=== PATIENT | female | born 2000 | race Hispanic/Latino ===

== ENCOUNTER 2024-01-24 23:00 | Emergency (ER) | payer SELFPAY ==
[2024-01-24 23:09] VITALS: BP 101/54; PULSE 64; RESP 14; TEMP 36.3; O2SAT 100
[2024-01-24 23:31] LABS: BEDSIDEPREGUCG Negative (Negative)
[2024-01-24 23:35] LABS: Add Urine Microscopic? YES; Appearance Urine Clear (Clear); Bacteria Urine None Seen /hpf; Bilirubin Urine Negative (Negative); Blood Urine 2+ (Negative); Color Urine Yellow (Yellow); Glucose Urine UA Negative (Negative); Ketones Urine Negative (Negative); Leukocyte Esterase Ur Negative LEU/UL (Negative); Nitrate Urine Negative (Negative); Non Pathogenic Casts 0-2; Protein Urine Negative (Negative); RBC Urine 0-2 /hpf (0-2); Specific Grav Ur 1.017 (1.001-1.035); Squamous Epithelial Cell Urine Occasional /hpf (Few); Urobilinogen Urine 0.2 mg/dL (<2.0); WBC Urine 0-5 /hpf (0-3)
[2024-01-25 02:34] LABS: Basophils Percent Auto 0.3 % (0.2-1.2); Eosinophils Absolute Auto 0.1 K/mm3 (0-0.3); Eosinophils Percent Auto 1.7 % (0-4.4); Immature Granulocyte Absolute 0.01 K/mm3 (0.00-0.031); Immature Granulocyte Percent A 0.2 % (0-0.5); Lymphocytes Percent Auto 44.4 % (18.3-44.2); Mean Corpuscular HGB Conc 34.4 g/dl (32-36); Mean Corpuscular Hemoglobin 30.7 pg (26-34); Mean Corpuscular Volume 89.4 fl (80-100); Mean Platelet Volume 9.4 fl (7.4-10.4); Monocytes Absolute Auto 0.4 K/mm3 (0.1-0.6); Neutrophils Absolute Auto 2.8 K/mm3 (1.3-6.7); Neutrophils Percent Auto 47.4 % (45.5-73.1); Platelet Count Result 261 k/mm3 (150-375); Red Blood Count 3.58 M/mm3 (4.2-5.4); Red Cell Distribution Width 12.3 % (11.5-14.5); White Blood Count 5.9 K/mm3 (4.5-10.0)
--- NOTE | 2024-01-25 02:36 | ED_ITS ---
HPI - Abdominal Pain General Chief Complaint: Abdominal Pain Stated Complaint: Stomach pain Time Seen by Provider: 01/25/24 02:35 Source: patient Mode of arrival: ambulatory Limitations: language barrier (Guilherme #[id number]) History of Present Illness HPI narrative: 23 year old female Patient presents with complaint epigastric pain occurring intermittently for the past 1 month. She describes it as her pressure that radiates to her left upper quadrant. It is worse with eating food and in particular spicy foods. She denies any use of NSAIDs. She does not drink alcohol and is not on steroids. She states it causes discomfort in her esophagus. 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 She felt nauseated but no vomiting recently though did few months ago. Patient notes that occasionally she is constipated for 3 or 4 days and then this alternates with diarrhea for a few days and back to constipation. No bloody stools. No fevers or chills. Her last bowel movement wastoday; last oral intake 5pm.. She does not have an appetite. LMP 12/20. Related Data Allergies Allergy/AdvReac Type Severity Reaction Status Date / Time No Known Allergies Allergy Verified 01/24/24 23:30 Exam Narrative: GENERAL: Well-appearing, well-nourished, and in no acute distress. HEAD: Normocephalic, atraumatic. EYES: Non injected, non icteric ENT: Nares clear, no rhinorrhea or epistaxis. NECK: Supple. CHEST: Speaking in full sentences. No respiratory distress. HEART: Regular rate and rhythm. . ABDOMEN: Soft, nondistended. Mild epigastric tenderness to palpation but without rigidity or guarding. No other tenderness throughout abdomen. Not pe ritoneal. EXTREMITIES: Normal range of motion. No lower extremity edema. SKIN: Warm, dry, no rash. NEURO: No focal deficits. Alert and oriented x3. PSYCH: Normal mood and affect. Course Vital Signs Vital signs: Vital Signs Temperature 97.3 F L 01/24/24 23:09 Pulse Rate 64 01/24/24 23:09 Respiratory Rate 14 01/24/24 23:09 Blood Pressure 101/54 L 01/24/24 23:09 Pulse Oximetry 100 01/24/24 23:09 Oxygen Delivery Room Air 01/24/24 23:09 Temperature 97.3 F L 01/24/24 23:09 Pulse Rate 86 01/25/24 03:54 Respiratory Rate 18 01/25/24 03:54 Blood Pressure 107/52 L 01/25/24 03:54 Pulse Oximetry 100 01/25/24 03:54 Oxygen Delivery Room Air 01/24/24 23:09 MDM - Abdominal Pain MDM Narrative Medical decision making narrative: Patient presents with intermittent epigastric pain worse with eating food and in particular spicy foods. In the emergency department she is afebrile with acceptable vital signs although a slightly low diastolic blood pressure, suspect normal for her age and body habitus.. test negative. We discussed the patient's symptoms some consistent with gastritis/peptic ulcer disease but also possibly GERD given that she does note some discomfort in her esophagus with this. Either way, noted that the treatment is similar. Patient given medication in the emergency department with prescriptions for outpatient use. Advised follow-up with the primary care physician provided referrals for this. Discharged home in stable condition. Differential Diagnosis Differential diagnosis: Likely constipation, pancreatitis and other (; irritable bowel syndrome-mixed type; gastritis, GERD; peptic ulcer disease) Lab Data Attestation: I reviewed the patient's lab results. Lab results narrative: Normal renal function, lipase normal Normocytic anemia with no prior for comparison 01/25/24 02:17 01/25/24 02:17 Labs: Lab Results 01/24/24 01/24/24 01/25/24 Range/Units 23:24 23:29 02:17 WBC 5.9 (4.5-10.0) K/mm3 RBC 3.58 L (4.2-5.4) M/mm3 Hgb 11.0 L (12.0-15.0) g/dL Hct 32.0 L (37.0-47.0) % MCV 89.4 (80-100) fl MCH 30.7 (26-34) pg MCHC 34.4 (32-36) g/dl RDW 12.3 (11.5-14.5) % Plt Count 261 (150-375) k/mm3 MPV 9.4 (7.4-10.4) fl Immature Gran % (Auto) 0.2 (0-0.5) % Neut % (Auto) 47.4 (45.5-73.1) % Lymph % (Auto) 44.4 H (18.3-44.2) % [place] % (Auto) 6.0 (2.6-8.5) % Eos % (Auto) 1.7 (0-4.4) % Baso % (Auto) 0.3 (0.2-1.2) % Lymph # (Auto) 2.60 (0.9-3.2) K/mm3 [place] # (Auto) 0.4 (0.1-0.6) K/mm3 Eos # (Auto) 0.1 (0-0.3) K/mm3 Baso # (Auto) 0.0 (0.0-0.1) K/mm3 Abs Immat Gran (auto) 0.01 (0.00-0.031) K/mm3 Absolute Neuts (auto) 2.8 (1.3-6.7) K/mm3 Absolute Nucleated RBC 0.000 (0.0-0.012) K/mm3 Nucleated RBC % 0.0 (0.0-0.2) % Sodium 138 (137-145) mmol/L Potassium 3.5 (3.4-5.0) mmol/L Chloride 104 (98-107) mmol/L Carbon Dioxide 27 (22-30) mmol/L Anion Gap 7 (4-12) mmol/L BUN 14 (7-17) mg/dL Creatinine 0.60 L (0.7-1.0) mg/dL Estim Creat Clear Calc 102 ml/min Estimated GFR > 60 (59 - ) Glucose 91 (65-110) mg/dL Calcium 9.0 (8.4-10.2) mg/dL Total Bilirubin 0.3 (0.2-1.3) mg/dL AST 21 (14-36) U/L ALT 13 (6-35) U/L Alkaline Phosphatase 70 (38-126) U/L Total Protein 7.0 (6.3-8.2) g/dL Albumin 4.3 (3.5-5.1) g/dL Lipase 116 (23-300) U/L Urine Color Yellow (Yellow) Urine Appearance Clear (Clear) Urine pH 6.0 (5.0-9.0) Ur Specific [place] 1.017 (1.001-1.035) Urine Protein Negative (Negative) mg/dL Urine Glucose (UA) Negative (Negative) mg/dL Urine Ketones Negative (Negative) mg/dL Ur Blood (Man) 2+ H (Negative) Urine Nitrate Negative (Negative) Urine Bilirubin Negative (Negative) Urine Urobilinogen 0.2 (<2.0) mg/dL Leukocyte Esterase Rfl Negative (Negative) DEJAN/UL Urine RBC 0-2 (0-2) /hpf Urine WBC 0-5 (0-3) /hpf Ur Squamous Epith Cells Occasional (Few) /hpf Urine Bacteria None seen /hpf Urine Casts 0-2 POC Urine HCG, Qual Negative (Negative) Discharge Plan Discharge Clinical Impression: Gastritis, Microscopic hematuria, Normocytic anemia Patient Disposition: Home, Self-Care Condition: Stable Instructions: Antibiotic Form, Gastritis (DC), Anemia (ED) Additional Instructions: You can use the prescribed medications for your symptoms (the famotidine for the pain in your stomach and the ondansetron oral disintegrating tablets if you have nausea). Because you do not have a primary care physician, the name of a doctor is listed below. Alternatively, there is a provider that speaks French if you prefer though I do not know if they are accepting patients. Her name is Sandy Lacey ([phone]). Return to the emergency department with any new or worsening symptoms. Patient Language: French Prescriptions: New famotidine 10 mg tablet 10 mg PO DAILY Qty: 30 0RF ondansetron 4 mg tablet,disintegrating 4 mg PO Q8H PRN (Reason: nausea and vomiting) Qty: 7 0RF Follow-up/Referrals: Cathy Mckeon DO [Physician] - (Family practice) PHYSICIAN,GROUND SUPPORT EQUIPMENT MECHANIC [Primary Care Provider] - Stand Alone Forms: Work/School Release IP Time of Disposition: 03:23
[2024-01-25 02:43] LABS: Alanine Aminotransferase 13 U/L (6-35); Albumin Level 4.3 g/dL (3.5-5.1); Alkaline Phosphatase 70 U/L (38-126); Anion Gap 7 mmol/L (4-12); Aspartate Amino Transferase 21 U/L (14-36); Bilirubin,Total 0.3 mg/dL (0.2-1.3); Blood Urea Nitrogen 14 mg/dL (7-17); Carbon Dioxide 27 mmol/L (22-30); Chloride 104 mmol/L (98-107); Estimated CRCL calculation 102 ml/min; Estimated Glomerular Filt Rate > 60; Glucose 91 mg/dL (65-110); Lipase 116 U/L (23-300); Potassium 3.5 mmol/L (3.4-5.0); Sodium 138 mmol/L (137-145)
--- NOTE | 2024-01-25 02:54 | PC.NURSE ---
Pt states (using anti air warfare operations officer Guilherme), that for an extended period of time she has had abdominal pain above her belly button after eating that radiates below her ribs on the left side. Pt states she also will alternate from being constipated for 3-4 days and will then have diarrhea. She says she also experiences nausea but no vomiting. She says the pain is worse after eating spicy foods
[2024-01-25] MEDS: FAMOTIDINE 20 MG/2 ML VIAL IV PUSH (03:09)
[2024-01-25] MEDS: ONDANSETRON INJ 4 MG/2 ML VIAL IV PUSH (03:09)
[2024-01-25 03:54] VITALS: BP 107/52; PULSE 86; RESP 18; O2SAT 100
== END 2024-01-25 03:56 | disposition home or self-care (01) ==
LOC: ANHED 01-25 03:35
PROVIDERS: Emergency Provider Student in an Organized Health Care Education/Training Program
DX: K29.70 Gastritis, unspecified, without bleeding (principal); R31.29 Other microscopic hematuria; D64.9 Anemia, unspecified
CPT/HCPCS: 36415; 80053; 81001; 81025; 83690; 85025; 96374; 96375; 99284; J2405

== ENCOUNTER 2024-09-24 02:18 | Day surgery (SDC) | payer SELFPAY ==
--- OUTSIDE RECORDS SUMMARY | 2024-09-24 02:22 | XMS_ITS | Data Portability ---
Author Organization [facility] SIRand Luna Address [address] [place] [address] Assessment No assessment recorded. Plan of Treatment Reminders Order Date Submit Date Provider Last Modified By Organization Details Last Modified Time Details Appointments None record ed. Lab CBC w/ auto diff 2023 [facility], [address] [place] [address], [address], [place], [address], 4 04:36:28 H pylori urea breath test, co2 infrar ed 2023 024 [facility], [address] [facility], [address], [place], [address], 4 16:36:41 amylas e + lipase , serum 2023 024 [facility], [address] [facility], [address], [place], [address], 4 04:36:30 celiac diseas e serolo gy panel, serum 2023 024 [facility], [address] [facility], [address], [place], [address], 4 04:36:19 cultur e, urine 2023 024 [facility], [address] [facility], [address], [place], [address], 4 19:09:01 CT + NG RNA, PCR, unspec ified specim en 2023 [facility], [address], [address], [place], [address], 4 04:36:20 CMP, serum or plasma 2023 [facility], [address], [address], [place], [address], 4 04:36:23 beta-H CG, qualit ative, serum or plasma 2023 024 [facility], [address], [address], [place], [address], 4 04:36:21 lipid panel, serum 2023 024 [facility], [address], [address], [place], [address], 4 04:36:22 HbA1c (hemog lobin A1c), blood 2023 024 [facility], [address], [address], [place], [address], 4 04:36:27 iron + total iron-b inding capaci ty (TIBC) , serum 2023 024 [facility], [address], [address], [place], [address], 4 04:36:26 vitami n D, 25-hyd javon, total, serum 2023 024 [facility], [address], [address], [place], [address], 4 04:36:31 vitami n B12 + folate , serum or blood 2023 024 [facility], [address] [place] [address], [address], [place], [address], 4 04:36:25 HIV 1 + 2, meanin gful use set 2023 024 [facility], [address] [place] [address], [address], [place], [address], 4 04:36:32 vagina l pathog ens panel, YUMIKO+pr obe, vagina l fluid 2023 024 [facility], [address] [place] [address], [address], [place], [address], 4 20:09:57 cytolo gy report , thin prep, smear or scrapi ng, cervic al or vagina l 2023 024 [facility], [address] [place] [address], [address], [place], [address], 4 15:10:27 Referral None record ed. Procedures None record ed. Surgeries None record ed. Imaging US, abdome n, comple te 2023 024 anna [email or web address] [facility] ([facility]), [address] [place], [address], 5 17:55:22 Medication Orders omepra zole 40 mg capsul e,ever yed releas e 2023 024 [id number], [address], [place], [id number], 4 17:02:49 Vitami n D2 1,250 mcg (50,00 0 unit) capsul e 2023 [facility] #[id number], [address], [place], [id number], 16:28:13 omepra zole 20 mg capsul e,ever yed releas e 2023 [facility] #[id number], [address], [place], [id number], 11:09:49 mupiro viki 2 % topica l ointme nt 2023 [facility] #[id number], [address], [place], [id number], 11:09:49 Patient TargetsNo targets recorded. Patient Instructions Encounter Date Encounter Id Patient Instructions Last Modified By Organization Details Last Modified Time 06/14/2023 [id number] Your women's health annual exam today was unremarkable. Continue to practice breast self awareness like we discussed. Come back to the office with any breast changes, nipple discharge, change to your menstrual cycle, or with complaints of unusual odorous discharge. Otherwise, come back in 1 year for your next well woman annual exam. Do NOT douche as it disturbs the natural balance of bacteria in the vagina and can cause infection. Avoid scented soaps or lotions. Use a basic unscented soap for only the outer skin around your vagina. Wear cotton underwear, avoid thongs, avoid spandex, leggings and wear panty liners daily. You can try probiotics. Use a condom with EVERY sexual encounter to minimize your risk for sexually transmitted infection and unplanned . [email or web address] Not available 06/14/2023 10:05:35 01/18/2024 [id number] dolor abdominal: instrucciones de cuidado - [abdominal pain: care instructions] Not available 01/18/2024 11:10:39 enfermedad de reflujo gastroesof gico (GERD): instrucciones de cuidado - [gastroesophageal reflux disease (GERD): care instructions] Not available 01/18/2024 11:10:39 Reason for Referral None Reported. Results Created Date Observation Date Name Description Value Unit Range Abnormal Flag Note LastModifiedBy Organization Detail LastModifiedTime 06/14/19 24 06/15/2023 NUA B VAGIN ITIS PLUS (VG+) atopobium vaginae Low - 0 score Not Available [facility] ([facility]) [address] [facility], [place], [address], 06/15/2023 20:09:57 06/14/19 24 06/15/2023 NUA B VAGIN ITIS PLUS (VG+) bvab 2 Low - 0 score Not Available [facility] ([facility]) [address] [facility], [place], [address], 06/15/2023 20:09:57 06/14/1906/15/2023 [facility] megasphaera 1 Low - 0 score Calcu late total score by luis daniel byrd the 3 indiv idual bacte rial vagin osis (BV) marke r score s toget her. Total score is inter prete d as follo ws: Total score 0-1: Indic ates the absen ce of BV. Total score 2: Indet ermin ate for BV. Addit ional clini caio data shoul d be evalu ated to estab tennille a diagn osis. Total score 3-6: Indic ates the prese nce of BV. This test was devel oped and its perfo rmanc e amber cteri stics deter mined by [facility]. It has not been clear ed or appro candida by the Food and Drug Admin istra tion. Not Available [facility] ([facility]) [address] [facility], [place], [address], 06/15/2023 20:09:57 06/14/19 24 06/15/2023 NUA B VAGIN ITIS PLUS (VG+) jennifer albicans, YUMIKO Negati ve negati ve Not Available [facility] ([facility]) [address] [facility], [place], [address], 06/15/2023 20:09:57 06/14/19 24 06/15/2023 NUA B VAGIN ITIS PLUS (VG+) jennifer glabrata, YUMIKO Negati ve negati ve Not Available [facility] ([facility]) [address] [facility], [place], [address], 06/15/2023 20:09:57 06/14/19 24 06/15/2023 NUSWA B VAGIN ITIS PLUS (VG+) trich vag by YUMIKO Negati ve negati ve Not Available [facility] ([facility]) [address] [facility], [place], [address], 06/15/2023 20:09:57 06/14/19 24 06/15/2023 NUA B VAGIN ITIS PLUS (VG+) chlamydia trachomatis, YUMIKO Negati ve negati ve Not Available [facility] ([facility]) [address] [facility], [place], [address], 06/15/2023 20:09:57 06/14/19 24 06/15/2023 NUA B VAGIN ITIS PLUS (VG+) neisseria gonorrhoeae, YUMIKO Negati ve negati ve Not Available [facility] ([facility]) [address] [facility], [place], [address], 06/15/2023 20:09:57 06/14/19 24 06/17/2023 IGP, RFX APTIM A HPV ASCU diagnosis: Commen t NEGAT ARACELIS FOR INTRA EPITH ELIAL LESIO N OR SERA GONZALEZ . Not Available [facility] ([facility]) [address] [facility], [place], [address], 06/17/2023 15:10:27 06/14/19 24 06/17/2023 IGP, RFX APTIM A HPV ASCU specimen adequacy: Commen t Satis facto ry for evalu ation . Endoc ervic al and/o r squam ous metap lasti c cells (endo cervi caio compo nent) are prese nt. Not Available [facility] ([facility]) [address] [place], [address], 06/17/2023 15:10:27 06/14/19 24 06/17/2023 IGP, RFX APTIM A HPV ASCU clinician provided ICD10: Leighton perry N89.8 Z01.4 19 Not Available [facility] ([facility]) [address] [place], [address], 06/17/2023 15:10:27 06/14/19 24 06/17/2023 IGP, RFX APTIM A HPV ASCU performed by: Marcos Bernardo (ASCP ) Not Available [facility] ([facility]) [address] [place], [address], 06/17/2023 15:10:27 06/14/19 24 06/17/2023 IGP, RFX APTIM A HPV ASCU . . Not Available [facility] ([facility]) [address] [place], [address], 06/17/2023 15:10:27 06/14/19 24 06/17/2023 IGP, RFX APTIM A HPV ASCU note: Leighton perry The Pap smear is a scree aguila test desig martha to aid in the detec tion of yamini ligna nt and malig nant condi tions of the uteri ne cervi x. It is not a diagn ostic proce dure and shoul d not be used as the sole means of detec ting cervi caio cance r. Both false -posi tive and false -nega tive repor ts do occur . Not Available [facility] ([facility]) [address] [place], [address], 06/17/2023 15:10:27 06/14/19 24 06/17/2023 IGP, RFX APTIM A HPV ASCU test methodology: Commen t This liqui d based ThinP rep(R ) pap test was scree martha with the use of an image guide johnnie castro Not Available [facility] ([facility]) [address] [place], [address], 06/17/2023 15:10:27 06/14/19 24 06/17/2023 IGP, RFX APTIM A HPV ASCU . Commen t The HPV DNA refle x crite alana were not met with this speci men resul t there fore, no HPV testi ng was perfo rmed. Not Available [facility] ([facility]) [address] [place], [address], 06/17/2023 15:10:27 01/18/20 24 01/19/2024 H PYLOR I BREAT H TEST H pylori breath test NEGATI VE negati ve Not Available [facility] ([facility]) [address] [place], [address], 01/19/2024 16:36:41 01/18/20 24 01/19/2024 MARLEN C DISEA SE PANEL endomysial antibody IgA NEGATI VE negati ve Not Available [facility] ([facility]) [address] [place], [address], 01/20/2024 04:36:19 01/18/20 24 01/19/2024 MARLEN C DISEA SE PANEL T-transgluta minase (ttg) IgA <2 U/mL 0-3 Negat aracelis 0 - 3 Weak Posit aracelis 4 - 10 Posit aracelis >10 Tissu e Trans gluta connie e (tTG) has been ident ified as the endom ysial antig en. Studi es have demon str- ated that endom ysial IgA antib odies have over 99% speci ficit y for glute n sensi tive enter opath y. Not Available [facility] ([facility]) [address] [facility] [place], [address], 01/20/2024 04:36:19 01/18/20 24 01/19/2024 MARLEN Matt DISEA SE PANEL immunoglobul in A, qn, serum 277 mg/dL 87-352 Not Available [facility] ([facility]) [address] [facility], [place], [address], 01/20/2024 04:36:19 01/18/20 24 01/20/2024 CHLAM YDIA/ GC AMPLI FICAT ION chlamydia trachomatis, YUMIKO NEGATI VE negati ve Not Available [facility] ([facility]) [address] [facility], [place], [address], 01/20/2024 04:36:20 01/18/20 24 01/20/2024 CHLAM YDIA/ GC AMPLI FICAT ION neisseria gonorrhoeae, YUMIKO NEGATI VE negati ve Not Available [facility] ([facility]) [address] [facility], [place], [address], 01/20/2024 04:36:20 01/18/20 24 01/19/2024 HCG QL W/REF FARHANA TO HCG QN HCG,beta subunit,qual NEGATI VE mIU/m L negati ve<6 Not Available [facility] ([facility]) [address] [facility], [place], [address], 01/20/2024 04:36:21 01/18/20 24 01/19/2024 LIPID PANEL cholesterol, total 180 mg/dL 100-19 9 Not Available [facility] ([facility]) [address] [place], [address], 01/20/2024 04:36:22 01/18/20 24 01/19/2024 LIPID PANEL triglyceride s 51 mg/dL 0-149 Not Available [facility] ([facility]) [address] [place], [address], 01/20/2024 04:36:22 01/18/20 24 01/19/2024 LIPID PANEL HDL cholesterol 60 mg/dL >39 Not Available [facility]) [address] [place], [address], 01/20/2024 04:36:22 01/18/20 24 01/19/2024 LIPID PANEL VLDL cholesterol caio 10 mg/dL 5-40 Not Available [facility] ([facility]) [address] [place], [address], 01/20/2024 04:36:22 01/18/20 24 01/19/2024 LIPID PANEL LDL chol calc ([facility]) 110 mg/dL 0-99 above high normal Not Available [facility] ([facility]) [address] [facility], [place], [address], 01/20/2024 04:36:22 01/18/20 24 01/19/2024 CMP14 +EGFR glucose 86 mg/dL 70-99 Not Available [facility] ([facility]) [address] [facility] [place], [address], 01/20/2024 04:36:23 01/18/20 24 01/19/2024 CMP14 +EGFR BUN 12 mg/dL 6-20 Not Available [facility] ([facility]) [address] [facility], [place], [address], 01/20/2024 04:36:23 01/18/20 24 01/19/2024 CMP14 +EGFR creatinine 0.68 mg/dL 0.57-1 .00 Not Available [facility] ([facility]) [address] [facility] [place], [address], 01/20/2024 04:36:23 01/18/20 24 01/19/2024 CMP14 +EGFR eGFR 125 mL/mi n/1.7 3 >59 Not Available [facility] ([facility]) [address] [facility] [place], [address], 01/20/2024 04:36:23 01/18/20 24 01/19/2024 CMP14 +EGFR BUN/creatini ne ratio 18 9-23 Not Available [facility] ([facility]) [address] [place], [address], 01/20/2024 04:36:23 01/18/20 24 01/19/2024 CMP14 +EGFR sodium 141 mmol/ L 134-14 4 Not Available [facility] ([facility]) [address] [place], [address], 01/20/2024 04:36:23 01/18/20 24 01/19/2024 CMP14 +EGFR potassium 4.4 mmol/ L 3.5-5. 2 Not Available [facility] ([facility]) [address] [place], [address], 01/20/2024 04:36:23 01/18/20 24 01/19/2024 CMP14 +EGFR chloride 106 mmol/ L 96-106 Not Available [facility] ([facility]) [address] [place], [address], 01/20/2024 04:36:23 01/18/20 24 01/19/2024 CMP14 +EGFR carbon dioxide, total 20 mmol/ L 20-29 Not Available [facility] ([facility]) [address] [place], [address], 01/20/2024 04:36:23 01/18/20 24 01/19/2024 CMP14 +EGFR calcium 9.5 mg/dL 8.7-10 .2 Not Available [facility] ([facility]) [address] [place], [address], 01/20/2024 04:36:23 01/18/20 24 01/19/2024 CMP14 +EGFR protein, total 7.5 g/dL 6.0-8. 5 Not Available [facility] ([facility]) [address] [place], [address], 01/20/2024 04:36:23 01/18/20 24 01/19/2024 CMP14 +EGFR albumin 4.7 g/dL 4.0-5. 0 Not Available [facility] ([facility]) [address] [facility] [place], [address], 01/20/2024 04:36:23 01/18/20 24 01/19/2024 CMP14 +EGFR globulin, total 2.8 g/dL 1.5-4. 5 Not Available [facility] ([facility]) [address] [facility] [place], [address], 01/20/2024 04:36:23 01/18/20 24 01/19/2024 CMP14 +EGFR bilirubin, total 0.3 mg/dL 0.0-1. 2 Not Available [facility] ([facility]) [address] [facility], [place], [address], 01/20/2024 04:36:23 01/18/20 24 01/19/2024 CMP14 +EGFR alkaline phosphatase 70 IU/L 44-121 Not Available [facility]) [address] [facility], [place], [address], 01/20/2024 04:36:23 01/18/20 24 01/19/2024 CMP14 +EGFR AST (SGOT) 14 IU/L 0-40 Not Available [facility] ([facility]) [address] [facility], [place], [address], 01/20/2024 04:36:23 01/18/20 24 01/19/2024 CMP14 +EGFR ALT (SGPT) 9 IU/L 0-32 Not Available [facility] ([facility]) [address] [facility], [place], [address], 01/20/2024 04:36:23 01/18/20 24 01/19/2024 VITAM IN B12 AND FOLAT E vitamin B12 822 pg/mL 232-12 45 Not Available [facility] ([facility]) [address] [facility], [place], [address], 01/20/2024 04:36:25 01/18/20 24 01/19/2024 VITAM IN B12 AND FOLAT E folate (folic acid), serum 7.6 NG/mL >3.0 A serum folat e jose ntrat ion of less than 3.1 ng/mL is consi dered to repre sent clini caio defic iency . Not Available [facility] ([facility]) [address] [facility], [place], [address], 01/20/2024 04:36:25 01/18/20 24 01/19/2024 IRON AND TIBC iron bind.cap.(TI BC) 264 ug/dL 250-45 0 Not Available [facility] ([facility]) [address] [facility], [place], [address], 01/20/2024 04:36:26 01/18/20 24 01/19/2024 IRON AND TIBC UIBC 200 ug/dL 131-42 5 Not Available [facility] ([facility]) [address] [facility], [place], [address], 01/20/2024 04:36:26 01/18/20 24 01/19/2024 IRON AND TIBC iron 64 ug/dL 27-159 Not Available [facility] ([facility]) [address] [place], [address], 01/20/2024 04:36:26 01/18/20 24 01/19/2024 IRON AND TIBC iron saturation 24 % 15-55 Not Available [facility] ([facility]) [address] [facility], [place], [address], 01/20/2024 04:36:26 01/18/20 24 01/19/2024 HEMOG LOBIN A1C hemoglobin A1C 5.6 % 4.8-5. 6 Predi abete s: 5.7 - 6.4 Diabe dari: >6.4 Glyce karely contr ol for adult s with diabe dari: <7.0 Not Available [facility] ([facility]) [address] [facility], [place], [address], 01/20/2024 04:36:27 01/18/20 24 01/18/2024 CBC WITH DIFFE RENTI AL/PL ATELE T WBC 4.8 x10e3 /uL 3.4-10 .8 Not Available [facility] ([facility]) [address] [facility], [place], [address], 01/20/2024 04:36:28 01/18/20 24 01/18/2024 CBC WITH DIFFE RENTI AL/PL ATELE T RBC 4.21 x10e6 /uL 3.77-5 .28 Not Available [facility] ([facility]) [address] [facility], [place], [address], 01/20/2024 04:36:28 01/18/20 24 01/18/2024 CBC WITH DIFFE RENTI AL/PL ATELE T hemoglobin 12.6 g/dL 11.1-1 5.9 Not Available [facility] ([facility]) [address] [place], [address], 01/20/2024 04:36:28 01/18/20 24 01/18/2024 CBC WITH DIFFE RENTI AL/PL ATELE T hematocrit 39.3 % 34.0-4 6.6 Not Available [facility] ([facility]) [address] [facility], [place], [address], 01/20/2024 04:36:28 01/18/20 24 01/18/2024 CBC WITH DIFFE RENTI AL/PL ATELE T MCV 93 fL 79-97 Not Available [facility] ([facility]) [address] [place], [address], 01/20/2024 04:36:28 01/18/20 24 01/18/2024 CBC WITH DIFFE RENTI AL/PL ATELE T MCH 29.9 pg 26.6-3 3.0 Not Available [facility] ([facility]) [address] [facility], [place], [address], 01/20/2024 04:36:28 01/18/20 24 01/18/2024 CBC WITH DIFFE RENTI AL/PL ATELE T MCHC 32.1 g/dL 31.5-3 5.7 Not Available [facility] ([facility]) [address] [facility], [place], [address], 01/20/2024 04:36:28 01/18/20 24 01/18/2024 CBC WITH DIFFE RENTI AL/PL ATELE T RDW 12.0 % 11.7-1 5.4 Not Available [facility] ([facility]) [address] [facility], [place], [address], 01/20/2024 04:36:28 01/18/20 24 01/18/2024 CBC WITH DIFFE RENTI AL/PL ATELE T platelets 311 x10e3 /uL 150-45 0 Not Available [facility] ([facility]) [address] [facility], [place], [address], 01/20/2024 04:36:28 01/18/20 24 01/18/2024 CBC WITH DIFFE RENTI AL/PL ATELE T neutrophils 61 % notest ab. Not Available [facility] ([facility]) [address] [facility], [place], [address], 01/20/2024 04:36:28 01/18/20 24 01/18/2024 CBC WITH DIFFE RENTI AL/PL ATELE T lymphs 32 % notest ab. Not Available [facility] ([facility]) [address] [place], [address], 01/20/2024 04:36:28 01/18/20 24 01/18/2024 CBC WITH DIFFE RENTI AL/PL ATELE T monocytes 6 % notest ab. Not Available [facility] ([facility]) [address] [facility], [place], [address], 01/20/2024 04:36:28 01/18/20 24 01/18/2024 CBC WITH DIFFE RENTI AL/PL ATELE T eos 1 % notest ab. Not Available [facility] ([facility]) [address] [facility], [place], [address], 01/20/2024 04:36:28 01/18/20 24 01/18/2024 CBC WITH DIFFE RENTI AL/PL ATELE T basos 0 % notest ab. Not Available [facility] ([facility]) [address] [facility], [place], [address], 01/20/2024 04:36:28 01/18/20 24 01/18/2024 CBC WITH DIFFE RENTI AL/PL ATELE T neutrophils (absolute) 2.9 x10e3 /uL 1.4-7. 0 Not Available [facility] ([facility]) [address] [facility], [place], [address], 01/20/2024 04:36:28 01/18/20 24 01/18/2024 CBC WITH DIFFE RENTI AL/PL ATELE T lymphs (absolute) 1.5 x10e3 /uL 0.7-3. 1 Not Available [facility] ([facility]) [address] [facility], [place], [address], 01/20/2024 04:36:28 01/18/20 24 01/18/2024 CBC WITH DIFFE RENTI AL/PL ATELE T monocytes(ab solute) 0.3 x10e3 /uL 0.1-0. 9 Not Available [facility] ([facility]) [address] [facility], [place], [address], 01/20/2024 04:36:28 01/18/20 24 01/18/2024 CBC WITH DIFFE RENTI AL/PL ATELE T eos (absolute) 0.1 x10e3 /uL 0.0-0. 4 Not Available [facility] ([facility]) [address] [place], [address], 01/20/2024 04:36:28 01/18/20 24 01/18/2024 CBC WITH DIFFE RENTI AL/PL ATELE T baso (absolute) 0.0 x10e3 /uL 0.0-0. 2 Not Available [facility] ([facility]) [address] [place], [address], 01/20/2024 04:36:28 01/18/20 24 01/18/2024 CBC WITH DIFFE RENTI AL/PL ATELE T immature granulocytes 0 % notest ab. Not Available [facility] ([facility]) [address] [place], [address], 01/20/2024 04:36:28 01/18/20 24 01/18/2024 CBC WITH DIFFE RENTI AL/PL ATELE T immature grans (abs) 0.0 x10e3 /uL 0.0-0. 1 Not Available [facility] ([facility]) [address] [place], [address], 01/20/2024 04:36:28 01/18/20 24 01/19/2024 MEL+L IPASE amylase 107 U/L 31-110 Not Available [facility] ([facility]) [address] [place], [address], 01/20/2024 04:36:29 01/18/20 24 01/19/2024 MEL+L IPASE lipase 37 U/L 14-72 Not Available [facility] ([facility]) [address] [place], [address], 01/20/2024 04:36:29 01/18/20 24 01/19/2024 VITAM IN D, 25-HY DROXY vitamin D, 25-hydroxy 14.2 NG/mL 30.0-1 00.0 below low normal Vitam in D defic iency has been defin ed by the Insti tute of Medic ine and an Endoc rine Socie ty pract ice guide line as a level of serum 25-OH vitam in D less than 20 ng/mL (1,2) . The Endoc rine Socie ty went on to furth er defin e vitam in D insuf ficie ncy as a level betwe en 21 and 29 ng/mL (2). 1. IOM (Inst itute of Medic ine). 2010. Dieta ry refer ence intak es for calci um and D. Pamela dotson [place]: [facility] . 2. Gwendolyn lopez [place], Johny french [place], Libia off-F errar i HERNANDEZ, et al. Evalu ation , treat ment, and preve ntion of vitam in D defic iency : an Endoc rine Socie ty clini caio pract ice guide line. JCEM. 2010; 96(7) :1911 -30. Not Available [facility] ([facility]) [address] [facility], [place], [address], 01/20/2024 04:36:31 01/18/20 24 01/19/2024 HIV AB/P2 4 AG WITH REFLE X HIV Ab/P24 Ag screen NON REACTI VE nonrea ctive HIV-1 /HIV- 2 antib odies and HIV-1 p24 antig en were NOT detec daron. There is no labor atory evide nce of HIV infec tion. HIV Negat aracelis Not Available [facility] ([facility]) [address] [facility], [place], [address], 01/20/2024 04:36:32 01/18/20 24 01/20/2024 URINE CULTU RE,CO MPREH ENSIV E urine culture,comp rehensive FINAL REPORT Not Available [facility] ([facility]) [address] [facility], [place], [address], 01/20/2024 19:09:01/18/2001/20/2024 URINE CULTU RE,CO MPREH ENSIV E result 1 COMMEN T No growt h in 36 - 48 hours . Not Available [facility] ([facility]) [address] [facility] [address], [place], [address], 01/20/2024 19:09:01 Result Notes None recorded. Problems No Known Problems Medical Equipment None Reported. Allergies No known drug allergies Medications Name Sig Start Date Stop Date Status Note LastModified by Organization Details LastModified Time fluconazole 150 mg tablet TAKE 1 TABLET BY MOUTH NOW AND THEN ANOTHER TABLET IN 72 HOURS active Not Available Not Available No t Available metronidazol e 0.75 % (37.5 mg/5 gram) vaginal gel INSERT 1 APPLICATORF UL VAGINALLY EVERY DAY FOR 5 DAYS active Not Available Not Available N ot Available omeprazole 40 mg capsule,ever yed release TAKE 1 CAPSULE BY MOUTH EVERY DAY active Not Available Not Available No t Available omeprazole 20 mg capsule,ever yed release TAKE 1 CAPSULE BY MOUTH EVERY DAY IN THE MORNING active Not Available Not Available No t Available mupirocin 2 % topical ointment APPLY A SMALL AMOUNT TO THE AFFECTED ARE THREE TIMES DAILY active Not Available Not Available Not Available ergocalcifer ol (vitamin D2) 1,250 mcg (50,000 unit) capsule TAKE 1 CAPSULE BY MOUTH EVERY WEEK active Not Available Not Available No t Available ondansetron 4 mg disintegrati ng tablet DISSOLVE ONE TABLET BY MOUTH EVERY 8 HOURS NEEDED active Not Available Not Available No t Available Vitals Date Recorded Body height Body mass index (BMI) Body weight Heart rate Systolic And Diastolic Provider Name and Address Organization Details Last Updated DateTime 06/14/2023 162.56 cm 21.5 kg/m2 24342.48 g 67 /min 106/70 mm[Hg] Kacie Branch [place] [facility] 06/14/2023 09:52:31 Date Recorded Body height Body mass index (BMI) Body weight Oxygen saturation Oxygen saturation in Arterial blood by Pulse oximetry Heart rate Respiratory rate Body temperature Systolic And Diastolic Provider Name and Address Organization Details Last Updated DateTime 162.56 cm 20 kg/m2 39160.1 1 g 99 % 99 % 74 /min 18 /min 97.3 [degF] 118/78 mm[Hg] Sonja Corcoran MA [facility] 10:18:49 Date Recorded Body height Provider Name an d Address Organization Details Last Updated DateTime 02/01/2024 162.56 cm Sonja Corcoran MA [facility] 01/31 09:28:59 Social History Question Answer Notes LastModified by Organizat ion Details LastModified Time Tobacco Smoking Status Never Smoker Kacie Branch MA [facility], [facility] 06/14/2023 09:54:13 Do You Have An Advance Directive? No Information n ot available 01/18/2024 Are You Blind Or Do You Have Difficulty Seeing? No Information n ot available 01/18/2024 In The 14 Days Before Symptom Onset, Have You Had Close Contact With A Laboratory-confirm ed COVID-19 While That Case Was Ill? No Information n ot available 01/18/2024 In The 14 Days Before Symptom Onset, Have You Had Close Contact With A Person Who Is Under Investigation For COVID-19 While That Person Was Ill? No Information not available 01/18/2024 Have You Been To An Area Known To Be High Risk For COVID-19? No Information not available 01/18/2024 Are You Deaf Or Do You Have Serious Difficulty Hearing? No Information not available 01/18/2024 What Type Of Diet Are You Following? REGULAR Information n ot available 01/18/2024 Are There Any Guns Present In Your Home? No Information not available 01/18/2024 What Was The Date Of Your Most Recent Tobacco Screening? 06/14/2023 [email or web address] Information not available 06/14/2023 Do You Use Protection During Sex? Always Information not available 01/18/2024 Do You Use Your Seat Belt Or Car Seat Routinely? Yes Information not available 01/18/2024 Are You Sexually Active? Yes Information not available 01/18/2024 Do You Have Smoke And Carbon Monoxide Detectors In Your Home? Yes Information not available 01/18/2024 Are You Passively Exposed To Smoke? No Information no t available 01/18/2024 Do You Use Sunscreen Routinely? No Information not available 01/18/2024 Sex: Female Functional Status Question Answer Note LastModified by Organizat ion Details LastModified Time Are you currently employed? Yes Information not available 01/18/2024 Are you able to care for yourself? Yes Information not available 01/18/2024 What is your exercise level? Occasional Information not available 01/18/2024 Mental Status Question Answer Note LastModified by Organization D etails LastModified Time Do you feel stressed (tense, restless, nervous, or anxious, or unable to sleep at night)? [id number] Information not available 01/18/2024 Family History Relationship Description Onset Age of this Age Resolved Age Notes LastModified by Organization Details LastModified Time Father No current problems or disability [email or web address] Not available 04/2023 09:53:55 Mother No current problems or disability [email or web address] Not available 04/2023 09:53:55 Medical History No medical history recorded. Gynecological History Statement/Question Response Flow Light Frequency of Cycle (Q days) 28 Sexually Active? Y Menses Monthly Y STIs/STDs N Duration of Flow (days) 6 Sexual Problems? 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 Pap+ HPV cotesting done; pt has no pap history2. STI screening completed. 3. Pt is using condoms for control.4. Discussed breast self awareness5 . Educated on STI reduction and prevention . Encouraged condom use.6. 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 Contracept ion care management 440156163 Z30.9 Contracept aracelis options were discussed. The patient would like to use condoms Vaginal discharge 561454 006 N89.8 1. Vaginitis swab done 2. Discussed vaginal hygiene, preventive measures and probiotics . Positive s creening for depression on PHQ-9 (Patient Health Questionnaire 9) 5591981434 97160 Z13.31 PHQ 9 today 9Denies any [place] [id number] Jono Hurtado MD [facility] (Adult Med) [address] [place] [address] 01/18/2024 09:34:29 01/19/2024 10:07:22 Body mass index 20-24 - normal 941877341 Z68.20 Abdominal pain 95139110 R10.9 several year historyBRA Tlabs orderedtri al with omeprazole 20mg once dailyfollo w up in 1week Paronychia due to ingrown nail 556391480 L03.039 left great toeseveral monthswarm soapy water soaksmupir ocin tidwill monitor [id number] Jono Hurtado MD [facility] (Adult Med) [address] [place] [address] 02/01/2024 08:49:33 02/02/2024 08:49:35 Body mass index 20-24 - normal 158340650 Z68.20 Vitamin D deficiency 347 33195 E55.9 will start vit d, repeat labs in 2months Abdominal pain 18410746 R10.9 several year historyBRA Tlabs orderedinc rease omeprazole 40mg Paronychia due to ingrown nail 192779351 L03.039 left great toeseveral monthswarm soapy water soaksmupir ocin tidwill monitor Health Concerns Section Related Observation LastModified by Organization Linnette [email or web address] LastModified Time None Recorded Concern Status LastModified by Organization Details LastModified Time None Recorded Advance Directives Directive N: Payers Insurance Date Sequence Insurance Name Policy Number Policy [place] Covered Member ID [place] Member ID Guarantor Name 01/18/2024 SLIDING FEE SCHEDULE - DISCOUNT Lexy Nolan 06/14/2023 SLIDING FEE SCHEDULE - DISCOUNT Lexy Nolan 06/14/2023 1 *SELF PAY* Arslan jed Nolan Notes Date Note Type Note Provider Name and Address Organization Details Recorded Time 06/14/2023 text/html Lexy javed 22yo 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 Tiera at bedside for [place] translation. Reports regular menstrual cycles with 5-6 days of moderate flow using 4-5 pads/tampon on their heaviest day. Has c/o of clear discharge at times with occasional odor. Denies any complaints. Denies any breast changes/pain, fatigue/cold intolerance/hair loss/dry skin. Denies dyspareunia, pelvic pressure or bowel movement changes.Denies SOB/chest pain/dizziness. Denies any fever or chills. Denies any family history of breast, ovarian, endometrial or pancreatic cancer. LMP: 06/01/2023Last pap smear: unknownPap due: TodayPatient is sexually active with a male partner. Patient has had 1male partner in the past 5 years.Current contraception is condomsPatient is happy with methodDesires STI testing today. 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
--- NOTE | 2024-09-24 08:30 | P.PNAN_ITS ---
Anes - Initial Pre Proc Eval Procedure: Operation Date: 09/24/24 13:45 Proposed Procedures p Esophagogastroduodenoscopy - Torey Martínez MD Date/Time: 09/24/24 08:30 Surgeon: Torey Martínez MD Pre Op Diagnosis: Epigastric pain, Abnormal weight loss Patient Data Age: 23 Gender: F Height: 4.14 m Weight: 54 kg Allergies Allergy/AdvReac Type Severity Reaction Status Date / Time iron AdvReac Mild headache Verified 09/24/24 12:32 Home Medications ?Medication ?Instructions ?Recorded ?Confirmed ?Type No Home Medications 09/19/24 09/19/24 History Patient hx anesthesia problems: none Family hx anesthesia problems: none Results Review: All pre-operative results and documents have been reviewed as part of the pre- operative evaluation. [facility] Past Medical History Medical History Anemia Social History Social History Smoking status: Former smoker Living arrangements: with family Spiritual care concerns: No Anes - Eval Final PreProcedure Day of Procedure 09/24/24 08:30 Patient weight: normal Heart: regular rate and rhythm Lungs: clear to auscultation and normal air movement Airway: Mallampati scale class II Neurological: alert and oriented Last oral intake: >/= 8 hours ASA classification: II Emergent: no Anesthetic plan: proceed Anesthesia type and monitoring: general GIVS and standard monitoring Results Review: All pre-operative results and documents have been reviewed as part of the pre- operative evaluation. Informed Consent: The patient's anesthetic plan and its attendant risks and benefits were discussed with the patient/family/POA. Questions were solicited and answers provided to the satisfaction of the patient/family/POA.
[2024-09-24 12:35] VITALS: BP 101/57; PULSE 58; RESP 16; TEMP 36.5; O2SAT 100; BMI 19.5
--- NOTE | 2024-09-24 12:42 | SUR.PREOP ---
Dennise used for pre-op ID number [id number] pt had no questions
[2024-09-24 12:43] LABS: BEDSIDEPREGUCG Negative (Negative)
[2024-09-24] MEDS: LACTATED RINGERS 1,000 ML 150 ML IV CONT (12:51)
--- NOTE | 2024-09-24 13:43 | PM.HPGS ---
History of Present Illness History of Present Illness Consent: Risks, benefits, and alternatives have been discussed and questions answered. Patient agrees to proceed with procedure. Chief complaint: Epigastric pain, Abnormal weight loss Narrative: Lexy Nolan is a 23 year old female here for first egd, intermittent epigastric pain Review of Systems Review of Systems: All systems reviewed & are unremarkable except as noted in HPI and below PMFSH Past Medical History Medical History Anemia Social History Social History Smoking status: Former smoker Living arrangements: with family Spiritual care concerns: No Meds Home Medications and Allergies Home Medications ?Medication ?Instructions ?Recorded ?Confirmed ?Type No Home Medications 09/19/24 09/19/24 History Allergies Allergy/AdvReac Type Severity Reaction Status Date / Time iron AdvReac Mild headache Verified 09/24/24 12:32 Vital Signs Vital Signs - 24 hr 09/24/24 12:35 Temperature 97.7 F Pulse Rate 58 L Respiratory Rate 16 Blood Pressure 101/57 L Pulse Oximetry 100 Oxygen Delivery Room Air Exam Const: General: comfortable and no acute distress HENMT: Face/Nose/Sinus: Normal nares present Eyes: General: appearance normal, both eyes and all related structures Neck: Neck: no JVD Resp: Auscultation: clear to auscultation bilaterally Cardio: Rate: regular rate Rhythm: regular rhythm GI: Inspection: non-distended GI Palp: Yes Soft to palpation Skin: General skin exam: normal color Neuro: Speech: normal speech Extrem: General: normal to inspection Psych: Mental Status: mental status grossly normal Assessment and Plan Assessment and plan (1) Epigastric pain: Code(s): R10.13 - Epigastric pain Status: Acute Assessment and Plan: egd with bx
--- NOTE | 2024-09-24 13:50 | S_PTH ---
PATIENT: Lexy Morales LOC: JOANA Zacarias#:[id number] AGE/SX: 23/F ROOM: RE09/24/[address]: Torey Martínez MD : 2000 BED: DIS: 09/24/2024 SPEC #: [id number] RECD: 09/24/24 14:24 STATUS: CR REQ #: [id number] JENNIFER: 09/24/24 13:[address]: Torey Martínez DEPT: [facility] Surgical RECD BY: Francesco Madden ENTERED: 09/24/24 14:24 SP TYPE: Surgical OTHR DR: Cathy Mckeon DO Tissues: A - Small Bowel Bx B - Gastric Biopsy Procedures: Hematoxylin and Eosin Stain Gross and Microscopic Level 4
[2024-09-24 13:54] VITALS: BP 113/74; PULSE 55; RESP 16; TEMP 36.5; O2SAT 100
[2024-09-24 14:04] VITALS: BP 106/68; PULSE 52; RESP 20; O2SAT 100
[2024-09-24 14:14] VITALS: BP 105/71; PULSE 50; RESP 16; O2SAT 100
--- NOTE | 2024-09-24 14:32 | SUR.PHASEII ---
Dr. Gutierres explained patient's discharge instructions in detail. Patient verbalized signs, symptoms, and complications to look out for according to her discharge paperwork. Patient verbalized understanding of no driving, alcohol, or legal decisions for 24 hours due to anesthesisa.
== END 2024-09-24 14:29 | disposition home or self-care (01) ==
PROVIDERS: Anesthesiology; PCP Family Medicine; Referring Provider Family Medicine; Visit Provider Internal Medicine Gastroenterology
PROC: 0DJ08ZZ Inspection of Upper Intestinal Tract, Via Natural or Artificial Opening Endoscopic (ICD-10-PCS; CPT 43239; principal; 2024-09-24 13:45)
DX: K21.9 Gastro-esophageal reflux disease without esophagitis (principal); D64.9 Anemia, unspecified; Z87.891 Personal history of nicotine dependence
CPT/HCPCS: 43239; 88305; J2003; J2704; J7120